=== PATIENT | male | born 1975 | race Caucasian/White ===

== ENCOUNTER 2016-06-10 08:58 | Emergency (ER) | payer OTHER ==
[~2016-06-10] VITALS: Ht 177.8 cm; Wt 125.9 kg
[~2016-06-10 08:58] MED LIST: CIPRO 500MG TA500 MG PO; GLUCOPHAGE500 MG/TAB PO; LEVAQUIN 5500 MG/TA1 PO; MOTRIN 800800 MG/TAB PO; NEURONTIN300 MG/CAP PO; NORCO 325 MG-51 TAB PO; PERCOCET 325 MG1 TA2 PO; PREDNISONE20 MG PO; PROMETHAZINE12.5 M5 PO
[2016-06-10 09:01] VITALS: BP 148/104
[2016-06-10] MEDS ORDERED: MEDROL 4MG DOSPA4 MG PO (09:31)
[2016-06-10] MEDS ORDERED: NAPROSYN 2250 MG/TAB PO (09:31)
[2016-06-10] MEDS ORDERED: NORCO 325 MG-51 TAB PO (09:31)
[2016-06-10 10:12] VITALS: PULSE 90
== END 2016-06-10 10:12 | disposition home or self-care (01) ==
LOC: COL.ER 08:58
DX: M54.5 Low back pain (principal); M62.830 Muscle spasm of back; E11.9 Type 2 diabetes mellitus without complications; Z79.84 Long term (current) use of oral hypoglycemic drugs
CPT/HCPCS: J1885; J2360

== ENCOUNTER 2016-08-04 06:35 | Emergency (ER) | payer OTHER ==
[~2016-08-04] VITALS: Ht 180.3 cm; Wt 125.9 kg
[~2016-08-04 06:35] MED LIST changes: +MEDROL 4MG DOSPA4 MG PO; +NAPROSYN 2250 MG/TAB PO
[2016-08-04 06:39] VITALS: TEMP 97.6
[2016-08-04] MEDS ORDERED: ULTRAM 50MG TAB50 MG PO (06:48)
[2016-08-04] MEDS ORDERED: ZOFRAN8 MG PO (06:48)
[2016-08-04 07:47] LABS: ADJUSTED CALCIUM 8.9 mg/dL (8.4-10.2); ALANINE AMINOTRANSFERASE 53 U/L (21-72); ALBUMIN 4.3 gm/dL (3.5-5.0); ALKALINE PHOSPHATASE 56 U/L (50-136); ANION GAP 11 mmol/L (7-16); BILIRUBIN,TOTAL 0.7 mg/dL (0.0-1.0); BLOOD UREA NITROGEN 16 mg/dL (9-20); CALCIUM 9.1 mg/dL (8.4-10.2); CARBON DIOXIDE 24 mmol/L (22-30); CHLORIDE 103 mmol/L (98-107); CREATININE, serum 0.79 mg/dL (0.66-1.25); GLUCOSE 151 mg/dL (74-106); POTASSIUM 4.4 mmol/L (3.4-5.0); SODIUM 138 mmol/L (137-145); TOTAL PROTEIN 7.3 gm/dL (6.4-8.2)
[2016-08-04 07:48] LABS: C-REACTIVE PROTEIN < 0.5 mg/dL (0.0-0.9)
[2016-08-04 07:50] LABS: BASO # 0.1 (0.0-0.2); BASO % 1.6 % (0.0-2.0); EOS # 0.2 (0.0-0.7); EOS % 4.5 % (0-4.0); GRAN % 45.8 % (42.2-75.2); HEMOGLOBIN 17.4 g/dl (13.5-18.0); LYMPH # 1.6 (1.2-3.4); LYMPH % 36.3 % (20.0-51.0); MEAN CELL VOLUME 92 fl (80.0-100.0); MEAN CORPUSCULAR HEMOGLOBIN 31 pg (27.0-31.0); MEAN CORPUSCULAR HGB CONC 34 g/dl (33.0-37.0); MEAN PLATELET VOLUME 9.1 fl (7.4-10.4); MONO # 0.5 (0.1-0.6); MONO % 11.6 % (1.7-9.3); PLATELET COUNT 209 K/mm3 (130-400); RED BLOOD COUNT 5.54 M/mm3 (4.20-5.60); WHITE BLOOD COUNT 4.4 K/mm3 (4.8-10.8)
[2016-08-04 07:56] LABS: B-TYPE NATRIURETIC PEPTIDE 57 pg/mL (0-125)
[2016-08-04 08:05] LABS: TROPONIN-I < 0.012 ng/mL (0.000-0.034)
[2016-08-04 09:34] VITALS: BP 137/77; PULSE 72
== END 2016-08-04 09:35 | disposition home or self-care (01) ==
LOC: COL.ER 06:35
PROVIDERS: Family Medicine
DX: R55 Syncope and collapse (principal); R06.00 Dyspnea, unspecified; F17.210 Nicotine dependence, cigarettes, uncomplicated; E11.9 Type 2 diabetes mellitus without complications; Z82.49 Family history of ischemic heart disease and other diseases of the circulatory system; Z79.84 Long term (current) use of oral hypoglycemic drugs

== ENCOUNTER → 2016-08-14 | Outpatient (CLI) | payer OTHER ==
[~2016-08-14] MED LIST changes: +ULTRAM 50MG TAB50 MG PO; +ZOFRAN8 MG PO
[2016-08-14 06:02] VITALS: BP 143/54; PULSE 61
[2016-08-14 07:22] VITALS: BP 135/77; PULSE 59
[2016-08-14 07:23] VITALS: BP 166/100; PULSE 110
[2016-08-14 07:26] VITALS: BP 164/44; BP 164/96; PULSE 106; PULSE 78
[2016-08-14 07:27] VITALS: BP 178/89; PULSE 81
== END ==
LOC: COL.CARD 05:32
DX: R55 Syncope and collapse (principal); R06.09 Other forms of dyspnea; E11.9 Type 2 diabetes mellitus without complications; E78.5 Hyperlipidemia, unspecified
CPT/HCPCS: A9502; J2785

== ENCOUNTER → 2016-08-21 | Outpatient (CLI) | payer OTHER | LOC: COL.VAS 07:48 | DX: R06.00 Dyspnea, unspecified (principal) ==

== ENCOUNTER → 2016-09-07 | Outpatient (CLI) | payer OTHER | LOC: COL.VAS 09-04 12:30 | DX: I65.23 Occlusion and stenosis of bilateral carotid arteries (principal); R06.02 Shortness of breath; F17.210 Nicotine dependence, cigarettes, uncomplicated ==

== ENCOUNTER → 2016-10-01 | Outpatient (CLI) | payer OTHER | LOC: COL.PUL 11:11 | DX: R06.02 Shortness of breath (principal) ==

== ENCOUNTER → 2016-10-16 | Outpatient (CLI) | payer OTHER | LOC: COL.RAD 07:53 | DX: Z01.812 Encounter for preprocedural laboratory examination (principal); J84.10 Pulmonary fibrosis, unspecified; K76.0 Fatty (change of) liver, not elsewhere classified | CPT/HCPCS: Q9967 ==

== ENCOUNTER 2017-12-15 21:03 | Emergency (ER) | payer SELFPAY ==
[~2017-12-15] VITALS: Ht 25.4 cm; Wt 104.5 kg
[2017-12-15] MEDS ORDERED: BENADRYL25 M2 (21:44)
[2017-12-15] MEDS ORDERED: EPIPEN 2-PAK1 MG/ML IM (21:46)
[2017-12-16 00:35] VITALS: BP 114/60; PULSE 79
== END 2017-12-16 00:35 | disposition home or self-care (01) ==
LOC: COL.ER 21:03
DX: T78.3XXA Angioneurotic edema, initial encounter (principal); T78.09XA Anaphylactic reaction due to other food products, initial encounter
CPT/HCPCS: J0171; J2930; J7030; J7512